=== PATIENT | female | born 1960 | race Two or more races ===

== ENCOUNTER 2017-01-31 22:10 | Emergency (ER) | payer OTHER ==
[~2017-01-31] VITALS: Ht 167.6 cm; Wt 95.3 kg
[~2017-01-31 22:10] MED LIST: NKM
[2017-01-31 22:18] VITALS: BP 185/94
--- NOTE | 2017-01-31 22:27 | Emergency Room Report ---
History of Present Illness General Chief Complaint: Upper Respiratory Illness Source: Patient Present Illness [facility] This is a 56-year-old female with no significant past medical history. She presents with chief complaint cough and congestion 2 days. Denies any fever or chills. Cough is yellow since sputum. Said she is short of breath. Denies any trauma. Chest pain with coughing. Other main complaint is she has a rash on her torso. Has been ongoing for a month. Itchy. Denies any fever or chills. Denies any other trauma. Denies any drug use. Allergies: Coded Allergies: HYDROCHLOROTHIAZIDE (Verified Allergy, Unknown, 01/31/17) Patient History Past Medical History: see triage record, old chart reviewed Past Surgical History: other Pertinent Family History: none Social History: Denies: smoking Now: No Immunizations: other Reviewed Nursing Documentation: PMH: Agreed, PSxH: Agreed Review of Systems Eye: Denies: blurred vision, eye pain ENT: Denies: ear pain, nose congestion, throat swelling Respiratory: Reports: cough, shortness of breath, sputum Cardiovascular: Denies: chest pain, palpitations Gastrointestinal: Denies: abdominal pain, diarrhea, nausea, vomiting Musculoskeletal: Denies: back pain, joint pain Skin: Reports: rash Neurological: Denies: headache, numbness Endocrine: Denies: increased thirst, increased urine Hematologic/Lymphatic: Denies: easy bruising All Other Systems: negative except mentioned in HPI Physical Exam Sp02 EP Interpretation: reviewed, normal General Appearance: well appearing, no apparent distress, alert, obese Head: normocephalic, atraumatic Eyes: bilateral eye EOMI, bilateral eye PERRL ENT: hearing grossly normal, normal pharynx Neck: full range of motion, supple, no meningismus Respiratory: chest non-tender, lungs clear, normal breath sounds Cardiovascular #1: regular rate, rhythm, no murmur Gastrointestinal: normal bowel sounds, non tender, no mass, no organomegaly, no bruit, non-distended Musculoskeletal: back normal, gait/station normal, normal range of motion Psychiatric: mood/affect normal Skin: warm/dry, rash - Patient with skin rash on her torso. It goes along the outline of her bra. Skin is red from her scratching. No drainage. Medical Decision Making Diagnostic Impression: Primary Impression: Upper respiratory infection Qualified Codes: J06.9 - Acute upper respiratory infection, unspecified; B97.89 - Other viral agents as the cause of diseases classified elsewhere Additional Impressions: Cellulitis of trunk, unspecified Candidal intertrigo Hypertension Qualified Codes: I10 - Essential (primary) hypertension Obesity (BMI 30.0-34.9) ER Course Patient with a cough. She is sleeping comfortably. No coughing. When she sees me she start coughing but nonproductive in nature. Lungs are clear. X- ray normal. No evidence of ACS, PE, pneumonia. Most likely viral versus malingering. No need for antibiotics. Her rash to be secondary to cellulitis versus drug-induced versus formication. I will put her on antibiotics for that along with fungal cream. patient said she was on pressure medication before. She refused to have her BP checked again. Chest X-Ray Diagnostic Results EP Interpretation: Yes Findings: no consolidation, no effusion, no pneumothorax, no acute cardiopulmonary disease Number of Views: 1 Status: improved Disposition: HOME, SELF-CARE Condition: Stable Scripts Amlodipine Besylate (Norvasc) 10 Mg Tablet 10 MG ORAL DAILY, #30 TAB Prov: RENETTA LIGHT M.D. 02/01/17 Nystatin/Triamcinolone (Nystatin-Triamcinolone Ointm) 15 Gm Oint...g. 1 APPLIC TOPIC TID, #60 GM Prov: RENETTA LIGHT M.D. 02/01/17 Clindamycin Hcl (CLINDAMYCIN HCL) 300 Mg Capsule 300 MG ORAL THREE TIMES A DAY, #21 CAP Prov: RENETTA LIGHT M.D. 02/01/17 Patient Instructions: Upper Respiratory Infection, Adult Additional Instructions: Followup with your DrGenevieve in 7 days. Take your blood pressure medication. Return if symptom worsen. RENETTA LIGHT M.D. Jan 31, 2017 22:27
[2017-02-01] MEDS ORDERED: MYCOLOG OINT1 APPLIC TOPIC (00:01)
[2017-02-01] MEDS ORDERED: CLINDAMYCIN HC300 MG ORAL (00:01)
[2017-02-01] MEDS ORDERED: NORVASC10 MG ORAL (00:03)
[2017-02-01 00:23] VITALS: BP 185/94
--- NOTE | 2017-02-01 09:47 | Diagnostic Imaging Report ---
Indication: Shortness of breath Technique: XRAY CHEST 1 V Comparison: None Findings: The cardiomediastinal silhouette is within normal limits. There is no focal consolidation, pneumothorax or pleural effusion. Degenerative changes of the spine are noted. Impression: No acute cardiopulmonary disease.
== END 2017-02-01 00:24 | disposition home or self-care (01) ==
LOC: EDBD 22:10 → EMR 22:49
DX: J06.9 Acute upper respiratory infection, unspecified (principal); B97.89 Other viral agents as the cause of diseases classified elsewhere; L03.319 Cellulitis of trunk, unspecified; B37.2 Candidiasis of skin and nail; I10 Essential (primary) hypertension; E66.9 Obesity, unspecified; Z68.33 Body mass index [BMI] 33.0-33.9, adult; Z88.8 Allergy status to other drugs, medicaments and biological substances
CPT/HCPCS: 71010; 99284